=== PATIENT | male | born 1980 | race Caucasian/White ===

== ENCOUNTER 2025-05-30 16:41 | Emergency (ER) | payer OTHER ==
[~2025-05-30] VITALS: Ht 182.9 cm; Wt 100.0 kg
[2025-05-30] MEDS ORDERED: ATOR40TA75 PO (18:28)
[2025-05-30] MEDS ORDERED: LISI10TA22 PO (18:28)
[2025-05-30] MEDS ORDERED: GLIP5TAB17 PO (18:28)
[2025-05-30 18:35] VITALS: BP 128/73; TEMP 98; O2SAT 98
== END 2025-05-30 18:36 | disposition home or self-care (01) ==
LOC: M ED 16:41
DX: Z76.0 Encounter for issue of repeat prescription (principal); I10 Essential (primary) hypertension; E11.9 Type 2 diabetes mellitus without complications; Z79.84 Long term (current) use of oral hypoglycemic drugs; Z79.899 Other long term (current) drug therapy

== ENCOUNTER → 2025-06-01 | Outpatient (CLI) | payer OTHER ==
[~2025-06-01] MED LIST: ATOR40TA75 PO; GLIP5TAB17 PO; LISI10TA22 PO
== END ==
LOC: M WUC 13:57
PROVIDERS: ATTEND Student in an Organized Health Care Education/Training Program
DX: M25.512 Pain in left shoulder (principal)